=== PATIENT | male | born 1945 ===

== ENCOUNTER 2021-04-19 13:09 | Emergency (ER) | payer MEDICARE ==
[~2021-04-19] VITALS: Ht 165.1 cm; Wt 65.8 kg
[2021-04-19 16:28] VITALS: BP 147/78
[2021-04-19] MEDS ORDERED: CEPH500T PO (16:39)
[2021-04-19] MEDS ORDERED: NEOMYCIN-BACITRACIN-POLYM 15GM TOP OINT TOP SCH (22:00)
== END 2021-04-19 17:11 | disposition home or self-care (01) ==
LOC: ER 13:09
DX: S61.210A Laceration without foreign body of right index finger without damage to nail, initial encounter (principal); N18.6 End stage renal disease; Z90.49 Acquired absence of other specified parts of digestive tract; Z79.899 Other long term (current) drug therapy; W29.3XXA Contact with powered garden and outdoor hand tools and machinery, initial encounter; Y93.89 Activity, other specified; Y92.89 Other specified places as the place of occurrence of the external cause; Y99.8 Other external cause status
CPT/HCPCS: 12002; 73140; 99283; J2001